=== PATIENT | female | born 1955 | race Caucasian/White ===

== ENCOUNTER → 2017-10-16 02:17 | Outpatient (CLI) | payer BC, SELFPAY ==
--- NOTE | 2017-10-16 15:28 | DI.REPORT_ITS ---
SYMPTOMS/DIAGNOSIS: CLOSED NONDISPLACED FX OF 5TH METATARSAL BONE, S92.355A, ? OSTEOPOROSIS DEXA SCAN: Routine examination. The lateral spine shows no compression deformities. Evaluation of the lumbar spine shows a total T score of -2.8 and a Z score of - 1.0, consistent with osteoporosis and a high fracture risk. This compares with a total T score of -1.7 from 2012. IMPRESSION: Findings consistent with osteoporosis of the lumbar spine.
== END ==
PROVIDERS: PCP Emergency Medicine; Visit Provider Student in an Organized Health Care Education/Training Program
DX: S92.355A Nondisplaced fracture of fifth metatarsal bone, left foot, initial encounter for closed fracture (principal); M81.0 Age-related osteoporosis without current pathological fracture
CPT/HCPCS: 77080

== ENCOUNTER 2017-10-25 09:22 | Outpatient (CLI) | payer BC, SELFPAY ==
[2017-10-25 10:38] LABS: Cholesterol 316 mg/dL (50-200); HDL Cholesterol 67 mg/dL (40-60); LDL CHOLESTEROL 224 mg/dL (<100); Triglyceride 106 mg/dL (30-150)
== END 2017-10-25 09:42 ==
PROVIDERS: PCP Emergency Medicine; Visit Provider Emergency Medicine
DX: E78.5 Hyperlipidemia, unspecified (principal)
CPT/HCPCS: 36415; 80061; 83721

== ENCOUNTER 2017-12-19 11:43 | Outpatient (CLI) | payer BC, SELFPAY ==
[2017-12-19 13:16] LABS: TSH 2.57 uIU/mL (0.358-3.74)
== END 2017-12-19 12:03 ==
PROVIDERS: PCP Emergency Medicine; Visit Provider Emergency Medicine
DX: E03.9 Hypothyroidism, unspecified (principal); E78.5 Hyperlipidemia, unspecified
CPT/HCPCS: 36415; 84443

== ENCOUNTER 2018-07-01 17:35 | Emergency (ER) | payer MEDICARE, BC, SELFPAY ==
[2018-07-01 17:46] VITALS: BP 123/61; PULSE 68; RESP 16; TEMP 36.3; O2SAT 96
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
[2018-07-01] MEDS: Acetaminophen 325 MG TAB 650 MG PO (19:49)
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
[2018-07-02] MEDS: Ibuprofen 600 MG TAB PO
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
== END 2018-07-02 00:10 | disposition home or self-care (01) ==
PROVIDERS: Emergency Provider Student in an Organized Health Care Education/Training Program; PCP Emergency Medicine
DX: S82.842A Displaced bimalleolar fracture of left lower leg, initial encounter for closed fracture (principal); S62.241A Displaced fracture of shaft of first metacarpal bone, right hand, initial encounter for closed fracture; V18.0XXA Pedal cycle driver injured in noncollision transport accident in nontraffic accident, initial encounter; Y93.55 Activity, bike riding
CPT/HCPCS: 27786; 29125; 99283; 73110; 73610; 99282; L4361

== ENCOUNTER 2018-07-05 08:22 | Outpatient (CLI) | payer MEDICARE, BC, SELFPAY ==
--- NOTE | 2018-07-05 08:33 | DI.RAD_ITS ---
SYMPTOMS/DIAGNOSIS: F/U RT ORTEGA FX RIGHT THUMB: The exam is limited by overlying cast material. There are no prior comparison exams. There is a fracture at the base of the first metacarpal which shows only mild displacement.
== END 2018-07-05 08:42 ==
PROVIDERS: PCP Emergency Medicine; Referring Provider Emergency Medicine; Visit Provider Student in an Organized Health Care Education/Training Program
DX: S62.211A Bennett's fracture, right hand, initial encounter for closed fracture (principal); V18.0XXA Pedal cycle driver injured in noncollision transport accident in nontraffic accident, initial encounter; Y93.55 Activity, bike riding; S82.65XA Nondisplaced fracture of lateral malleolus of left fibula, initial encounter for closed fracture
CPT/HCPCS: 99214; 73140; 73630

== ENCOUNTER 2018-07-05 11:39 | Outpatient (CLI) | payer MEDICARE, BC, SELFPAY ==
--- NOTE | 2018-07-05 09:05 | DI.RAD_ITS ---
SYMPTOMS/DIAGNOSIS: FALL WITH LT FOREFOOT PAIN LEFT FOOT: Comparison is made with [id number]. There is an old healed fracture at the base of the fifth metatarsal. There are degenerative changes of the first MTP joint, unchanged. The bones appear osteopenic. A tiny heel spur is seen. IMPRESSION: No acute abnormality.
== END 2018-07-05 11:59 ==
PROVIDERS: PCP Emergency Medicine; Visit Provider Student in an Organized Health Care Education/Training Program
DX: M79.672 Pain in left foot (principal); M19.072 Primary osteoarthritis, left ankle and foot; M85.88 Other specified disorders of bone density and structure, other site; M77.32 Calcaneal spur, left foot; S62.211D Bennett's fracture, right hand, subsequent encounter for fracture with routine healing
CPT/HCPCS: 73630

== ENCOUNTER 2018-07-12 11:30 | Outpatient (CLI) | payer MEDICARE, BC, SELFPAY ==
--- NOTE | 2018-07-12 11:27 | DI.RAD_ITS ---
SYMPTOMS/DIAGNOSIS: F/U RT BENNET FX RIGHT THUMB: Comparison is made with [id number]. A splint is in place which somewhat obscures the bony detail. There has been no change in the alignment of the fracture of the proximal phalanx of the thumb. There has been some increased healing when compared with the previous exams.
== END 2018-07-12 11:50 ==
PROVIDERS: PCP Emergency Medicine; Referring Provider Emergency Medicine; Visit Provider Student in an Organized Health Care Education/Training Program
DX: S62.211D Bennett's fracture, right hand, subsequent encounter for fracture with routine healing (principal); S82.65XD Nondisplaced fracture of lateral malleolus of left fibula, subsequent encounter for closed fracture with routine healing; L03.116 Cellulitis of left lower limb; X58.XXXD Exposure to other specified factors, subsequent encounter
CPT/HCPCS: 99213; Q4010; 73140

== ENCOUNTER 2018-08-02 10:31 | Outpatient (CLI) | payer MEDICARE, BC, SELFPAY ==
--- NOTE | 2018-08-02 10:27 | DI.RAD_ITS ---
SYMPTOM/DIAGNOSIS: RT BENNET FX F/U RIGHT THUMB: Three views. Comparison 07/12/18 There has been no change in alignment of the fracture involving the first metacarpal. Callus formation has developed about the fracture consistent with some interval healing. IMPRESSION: Healing first metacarpal fracture
== END 2018-08-02 10:51 ==
PROVIDERS: PCP Emergency Medicine; Referring Provider Emergency Medicine; Visit Provider Student in an Organized Health Care Education/Training Program
DX: S62.211A Bennett's fracture, right hand, initial encounter for closed fracture (principal); S82.65XA Nondisplaced fracture of lateral malleolus of left fibula, initial encounter for closed fracture; X58.XXXA Exposure to other specified factors, initial encounter; L03.116 Cellulitis of left lower limb
CPT/HCPCS: 99213; 73140; L3908

== ENCOUNTER 2018-08-26 13:48 | Outpatient (CLI) | payer MEDICARE, BC, SELFPAY ==
--- NOTE | 2018-08-26 10:59 | DI.RAD_ITS ---
SYMPTOM/DIAGNOSIS; F/U LEFT LATERAL MALLEOLUS FRACTURE LEFT ANKLE: 08/26 Two views were obtained. The previously described nondisplaced fracture of the lateral malleolus is again noted which appears to be healing with no change in alignment in comparison with examination of 07/01/2018
== END 2018-08-26 14:08 ==
PROVIDERS: PCP Emergency Medicine; Referring Provider Emergency Medicine; Visit Provider Student in an Organized Health Care Education/Training Program
DX: S82.65XA Nondisplaced fracture of lateral malleolus of left fibula, initial encounter for closed fracture; G62.9 Polyneuropathy, unspecified; X58.XXXA Exposure to other specified factors, initial encounter
CPT/HCPCS: 99213; 73600

== ENCOUNTER 2018-10-02 08:20 | Outpatient (CLI) | payer MEDICARE, BC, SELFPAY ==
[2018-10-02 09:35] LABS: Calculated LDL 89 mg/dL; Cholesterol 173 mg/dL (50-200); HDL Cholesterol 71 mg/dL (40-60); Triglyceride 66 mg/dL (30-150)
== END 2018-10-02 08:40 ==
PROVIDERS: PCP Emergency Medicine; Visit Provider Internal Medicine
DX: E78.01 Familial hypercholesterolemia (principal)
CPT/HCPCS: 36415; 80061; 83721

== ENCOUNTER 2019-02-07 07:00 | Outpatient (CLI) | payer MEDICARE, BC, SELFPAY | END 2019-02-07 07:20 | PROVIDERS: PCP Emergency Medicine; Visit Provider Emergency Medicine | DX: E03.9 Hypothyroidism, unspecified (principal) | CPT/HCPCS: 36415; 84443 ==

== ENCOUNTER → 2019-03-11 15:00 | Outpatient (BNVA) | payer MEDICARE, BC, SELFPAY | PROVIDERS: PCP Emergency Medicine; Referring Provider Emergency Medicine; Visit Provider Nurse Practitioner Gerontology | DX: N39.41 Urge incontinence (principal) | CPT/HCPCS: 99204; 99215 ==

== ENCOUNTER 2019-03-20 01:17 | Outpatient (CLI) | payer MEDICARE, BC, SELFPAY ==
--- NOTE | 2019-03-20 10:02 | DI.MAMMO_ITS ---
EXAM: MAMMO SCREENING CLINICAL HISTORY: Screening.z12.39 TECHNIQUE: Mammograms were interpreted according to the usual protocol including computer analysis w [employer] CAD system, tomosynthesis and C-view imaging. FINDINGS: The breasts are heterogeneously dense. No dominant mass or clumped microcalcification is identified in either breast. Current examination is compared with previous examinations including May 2017 an d there has been no gross interval change in appearance in comparison with previous studies. IMPRESSION: No specific evidence of malignancy at this time. Routine screening examinations are suggested at year ly intervals due to the family history of breast. Category 1. Breast density, category C. BI-RADS Cat 1 - Negative Breast Density - Category C - Heterogeneously dense.
== END 2019-03-20 01:37 ==
PROVIDERS: PCP Emergency Medicine; Visit Provider Obstetrics & Gynecology Gynecology
DX: Z12.31 Encounter for screening mammogram for malignant neoplasm of breast (principal); Z80.3 Family history of malignant neoplasm of breast
CPT/HCPCS: 77063; 77067

== ENCOUNTER 2019-07-16 09:40 | Outpatient (CLI) | payer MEDICARE, BC, SELFPAY ==
[2019-07-17 16:51] LABS: COVID-19 RT-PCR UVMMC Result Negative (Negative)
== END 2019-07-16 10:00 ==
PROVIDERS: PCP Emergency Medicine; Visit Provider Emergency Medicine
DX: R50.9 Fever, unspecified (principal)
CPT/HCPCS: U0003

== ENCOUNTER 2019-08-07 11:00 | Outpatient (CLI) | payer MEDICARE, BC, SELFPAY ==
--- NOTE | 2019-08-07 11:26 | DI.RAD_ITS ---
EXAM: XR FOOT RT COMPLETE CLINICAL HISTORY: post fall - contusion edema,m79.671, pain. TECHNIQUE: 2D digital imaging was performed. COMPARISON: No exams were available for comparison FINDINGS: BONES: There is mild deformity at the proximal third metatarsal which could represent an acute or old fracture. No bony destructive lesion is seen. JOINTS: No dislocation present. SOFT TISSUE: Swelling over the dorsum of the metatarsal region. IMPRESSION: Acute vs old fracture of the proximal third metatarsal. DATA REPOSITORY: RADIATION DOSE DELIVERED:
== END 2019-08-07 11:20 ==
PROVIDERS: PCP Emergency Medicine
DX: M79.672 Pain in left foot (principal); R60.0 Localized edema; M20.5X2 Other deformities of toe(s) (acquired), left foot
CPT/HCPCS: 73630

== ENCOUNTER 2020-03-22 03:00 | Outpatient (CLI) | payer MEDICARE, BC, SELFPAY ==
--- NOTE | 2020-03-22 14:04 | DI.MAMMO_ITS ---
EXAM: MG MAMMO SCREENING CLINICAL HISTORY: screening,Z12.39 TECHNIQUE: Bilateral full field digital CC and MLO mammographic images were obtained with 3D tomosyn thesis and utilizing computer aided detection (CAD). COMPARISON: Available for comparison. FINDINGS: Masses/Architectural Distortion: None seen. There is a biopsy clip again seen in the left breast. Microcalcifications: No suspicious pleomorphic-type are seen. Skin Thickening/Nipple Retraction: None. IMPRESSION: 1. No significant interval change with no specific features of malignancy noted. 2. Unless there is more urgent need, screening mammography is recommended, as per [employer] guidelines. BI-RADS Category 1 - Negative Breast Density - Category C - Heterogeneously dense Breast density category C or D implies that the patient has dense breast tissue. Dense breast tissue is very common and is not abnormal but dense breast tissue can make it harder to find cancer on a ma mmogram. Also, dense breast tissue may increase their breast cancer risk. This information about the result of the mammogram report was provided to the patient to raise their awareness. Use this report when you speak with the patient about their risks for breast cancer, which includes their family hist ory. At that time, you may recommend for more screening tests (Ultrasound or MRI) as they might be us eful based on their risk. A negative radiographic report should not delay biopsy if a dominant or clinically suspicious mass is present. Up to ten percent of cancers are not identified on mammography. A negative report may reinforce clinical impression. Adenosis and dense breasts may obscure an underlying neoplasm. False positive reports average 6 to 10%. Patient will receive a letter notifying them of these results.
== END 2020-03-22 03:20 ==
PROVIDERS: PCP Emergency Medicine; Visit Provider Obstetrics & Gynecology Gynecology
DX: Z12.31 Encounter for screening mammogram for malignant neoplasm of breast (principal)
CPT/HCPCS: 77063; 77067

== ENCOUNTER → 2023-11-28 13:48 | Outpatient (BNVA) | payer MEDICARE, BC, SELFPAY | PROVIDERS: PCP Nurse Practitioner Family; Visit Provider Nurse Practitioner Gerontology | DX: N39.3 Stress incontinence (female) (male) | CPT/HCPCS: 51798; 81003; 99205 ==

== ENCOUNTER → 2024-01-24 08:12 | Outpatient (BNVA) | payer MEDICARE, BC, SELFPAY | PROVIDERS: PCP Nurse Practitioner Family; Referring Provider Nurse Practitioner Family; Visit Provider Nurse Practitioner Gerontology | DX: N39.3 Stress incontinence (female) (male) (principal) | CPT/HCPCS: 99441 ==

== ENCOUNTER → 2024-04-02 13:15 | Outpatient (BNVA) | payer MEDICARE, BC, SELFPAY | PROVIDERS: PCP Nurse Practitioner Family; Referring Provider Nurse Practitioner Family; Visit Provider Nurse Practitioner Gerontology | DX: N39.3 Stress incontinence (female) (male) (principal) | CPT/HCPCS: 51798; 99213 ==

== ENCOUNTER → 2024-10-01 15:25 | Outpatient (BNVA) | payer MEDICARE, BC, SELFPAY | PROVIDERS: Visit Provider Nurse Practitioner Gerontology | DX: N39.3 Stress incontinence (female) (male) (principal); R39.9 Unspecified symptoms and signs involving the genitourinary system | CPT/HCPCS: 99213; 51798 ==

== ENCOUNTER 2024-12-18 10:22 | Emergency (ER) | payer MEDICARE, BC, SELFPAY ==
[2024-12-18] VITALS (18 sets, daily range): BP systolic 123–134; BP diastolic 50–79; PULSE 56–88; RESP 14–23; TEMP 36.5; O2SAT 94–98
--- NOTE | 2024-12-18 10:15 | RT.EKG_ITS ---
APPROVED REPORT Exam: Resting ECG Reason for Exam: dizziness Patient Location: E HR:61 bpm ECG Measurements Heart Rate 61 AXIS PA 188 P 69 QRSd 86 QRS 74 QT 389 T 72 QTc 391 Conclusion Sinus rhythm...normal P axis, V-rate 60- 99
--- NOTE | 2024-12-18 10:43 | ED.GENADUL_ITS ---
Discharge Plan Disposition Patient Disposition: Home Condition: Good Discharge Details Clinical Impression: Vertigo Primary Care Provider: Unknown,Unknown ED Provider: Marilyn Michael Home Meds and New Rx's Prescriptions: New meclizine 25 mg tablet 25 mg PO TID PRN (Reason: motion sickness) Qty: 20 0RF Continued ezetimibe 10 mg tablet 10 mg PO DAILY alprazolam [Xanax] 0.5 mg tablet 0.5 mg PO DIRECTED Qty: 20 0RF Rx Instructions: TAKE ONE HOUR PRIOR TO PLANE TRAVEL; THEN Q4 HOURS NEEDED. clobetasol 0.05 % ointment 1 applic topical DAILY Qty: 45 2RF Rx Instructions: apply tiny amount to vulva daily. multivitamin 1 EACH tablet 1 tab PO DAILY glucosam-chond cy-cwzfqk-kh ac 1 EACH capsule 1 cap PO DAILY levothyroxine [Synthroid] 75 mcg tablet 75 mcg PO DAILY Qty: 90 3RF estradiol 0.01 % (0.1 mg/gram) cream 1 g vaginal .bi weekly Qty: 42.5 0RF mirabegron [Myrbetriq] 50 mg tablet extended release 24 hr 50 mg PO DAILY Qty: 90 3RF Repatha SureClick 140 mg/mL Pen Injector 140 mg SUBCUT Q2W Discharge Instructions Instructions: Meclizine, Vestibular Exercises, Vertigo ED Additional Instructions: As we discussed, the vertigo you are experiencing appears to be peripheral meaning it is originating in the inner ear. This is most commonly caused benign paroxysmal peripheral vertigo. This may come on with certain movements. It can also be worsened when you are dehydrated or if you are ill and you have a virus. Please continue to encourage hydration. Please continue to take care when moving as vertigo can put you at increased risk of fall. You may use the meclizine as prescribed to help with any recurrence of vertigo episodes. You may also try something like the Hugo maneuver, information on this attached, to help to remove the small stone, AKA otolith, from where it is cotton stuck to allow for better movement in your ear and prevent vertigo. If you develop any headache, visual change, sensory change, confusion, uncontrolled vertigo or other new/worsening symptom please seek care urgently once again. Please follow-up with primary care in 1 week for reevaluation. Discharge Data Discharge Date/Time-TO BE ENTERED AT DEPARTURE: 12/18/24 13:35 HPI General Mode of arrival: EMS . Date/Time Provider Initiated Documentation: 12/18/24 10:43 . Limitations to Documentation: no limitations . Information obtained by: patient, family (), EMS and RN notes reviewed . History of Present Illness 69 year old F presents to the emergency department with the chief complaint of vertigo, described as severe, and it has been intermittent. Immobilization improves symptom(s), Movement worsens symptoms . Patient notes nausea/vomiting. Patient did receive the following treatments prior to arrival, other (versed nd zheng) Related Data Home Medications Medication Instructions Recorded Confirmed uqxorkeekf-dvbblzrqkg-tfnracwj-hyalur 1 cap PO DAILY 0 05/17/12 05/31/23 ac 375 mg-300 mg-175 mg-2 mg cap multivitamin 1 tab PO DAILY 05/17/1205/20 evolocumab 140 mg/mL subcutaneous 140 mg subcut Q2W 05/31/23 pen injector (Loida Clinton) alprazolam 0.5 mg tablet (Xanax) 0.5 mg PO DIRECTED #20 tabs 02/07/19 05/31/23 ezetimibe 10 mg tablet 10 mg PO DAILY 02/07/1905/20 clobetasol 0.05 % topical ointment 1 applic topical DA GUILHERME #45 grams 03/16/20 05/31/23 levothyroxine 75 mcg tablet 75 mcg PO DAILY #90 tab-ca ps 08/02/20 05/31/23 (Synthroid) estradiol 0.01% (0.1 mg/gram) 1 g vaginal .bi weekly # 42.5 grams 04/21/24 vaginal cream mirabegron 50 mg tablet,extended 50 mg PO DAILY #90 ta bs 06/10/24 release 24 hr (Myrbetriq) meclizine 25 mg tablet 25 mg PO TID PRN motion sick ness 12/18/24 #20 tabs Previous Rx's Medication Instructions Recorded alprazolam 0.5 mg tablet (Xanax) 0.5 mg PO DIRECTED #20 tabs 02/07/19 clobetasol 0.05 % topical ointment 1 applic topical DA GUILHERME #45 grams 03/16/20 levothyroxine 75 mcg tablet 75 mcg PO DAILY #90 tab-ca ps 08/02/20 (Synthroid) estradiol 0.01% (0.1 mg/gram) 1 g vaginal .bi weekly # 42.5 grams 04/21/24 vaginal cream mirabegron 50 mg tablet,extended 50 mg PO DAILY #90 ta bs 06/10/24 release 24 hr (Myrbetriq) meclizine 25 mg tablet 25 mg PO TID PRN motion sick ness 12/18/24 #20 tabs Allergies Allergy/AdvReac Type Severity Reaction Status Date / Time sulfamethoxazole Allergy Mild ITCHING Verified 12/18/24 10:30 trimethoprim Allergy Mild ITCHING Verified 12/18/24 10:30 wool AdvReac Skin Rash Verified 12/18/24 10:30 General Stated Complaint: Dizzy/Sync MEL: 3 Review of Systems Constitutional Constitutional: Reports as per HPI, Denies chills, Denies fever(s), Denies frequent falls and Denies weakness Eyes Eyes: Reports as per HPI, Denies blurry vision and Denies change in vision ENT Ears, Nose, Mouth, and Throat: Denies neck pain Cardiovascular Cardiovascular: Reports as per HPI, Denies chest pain, Denies dyspnea and Denies dyspnea on exertion Respiratory Respiratory: Reports as per HPI, Denies chest congestion, Denies cough, Denies dyspnea and Denies dyspnea on exertion Gastrointestinal Gastrointestinal: Reports as per HPI, Denies abdominal pain, Denies change in bowel habits and Denies vomiting Musculoskeletal Musculoskeletal: Reports as per HPI, Denies back pain, Denies neck pain and Denies numbness Integumentary/Breasts Skin/Breast: Reports as per HPI and Denies rash Neurologic Neurologic: Reports as per HPI, Denies abnormal speech, Denies behavioral changes, Denies confusion, Denies frequent falls, Denies localized weakness, Denies numbness, Denies sensory deficit and Denies weakness Psychiatric Psychiatric: Denies behavioral changes and Denies confusion Exam Const General: cooperative, healthy appearing, comfortable, no acute distress, well developed, well groomed and anxious Nutritional Appearance: average body habitus and well nourished Orientation: alert, awake and oriented x3 HENMT Head: normal to inspection, no palpable skull fracture, normocephalic and atraumatic Ears: hearing grossly normal bilaterally and external ears normal General nose exam: external nose normal Mouth: oral mucosae normal and moist mucous membranes Throat: posterior oropharynx normal Eyes General: appearance normal, both eyes and all related structures Alignment and Position: alignment normal Periorbital: periorbital findings normal Eyelids: eyelids normal Sclera: sclerae normal Cornea: corneas normal Pupils: PERRL EOM: EOM intact bilaterally and nystagmus Neck Neck: normal visual inspection, full ROM and no lymphadenopathy Resp Effort & Inspection: normal respiratory effort, able to speak in complete sentences and no respiratory distress Auscultation: clear to auscultation bilaterally, no rales, no rhonchi and no wheezes Cardio Rate: regular rate Rhythm: regular rhythm Heart Sounds: S1 normal and S2 normal Skin General skin exam: no rashes or lesions noted Neuro General: patient alert, patient awake and patient oriented x3 Cranial Nerves: CN's II-XI intact bilaterally and nystagmus horizontal fast component to the left Cognition: normal cognition Speech: speech normal Gait: normal gait Motor: muscle tone normal throughout, strength 5/5 throughout, no pronator drift, no movement abnormalities noted and no fasciculations Sensory Exam: no sensory deficits noted Coordination: ppqqww-[id number] test normal Extrem General: capillary refill normal, no pedal edema and no calf tenderness Course Vital Signs Vital signs: Vital Signs Temperature 36.5 C 12/18/24 10:22 Pulse 64 12/18/24 10:22 Respiratory Rate 20 12/18/24 10:22 Blood Pressure 123/55 L 12/18/24 10:22 Pulse Oximetry 97 12/18/24 10:22 Temperature 36.5 C 12/18/24 10:22 Pulse 64 12/18/24 10:22 Respiratory Rate 20 12/18/24 10:22 Blood Pressure 123/55 L 12/18/24 10:22 Blood Pressure Position Supine 12/18/24 10:22 Pulse Oximetry 97 12/18/24 10:22 Oxygen Delivery Method Room Air 12/18/24 10:22 Oxygen Flow Rate 0 12/18/24 10:22 Pain Level 0 12/18/24 10:22 Medical Decision Making Patient is a pleasant 69-year-old female, accompanied by her , presented with chief complaint of vertigo that came on when she was x-raying the gym. She never had episodes like this historically. She reports that she was doing sit ups when she suddenly became vertiginous and the room began violently spinning causing her to become very nauseated. Has not actually had any episodes of emesis. Was given Zofran by EMS and brought here for further evaluation. She denies any headache, vision changes, sensory or motor deficits. Patient does haveHistory of CMT which caused her to have difficulty with her lower extremities as well as some baseline difficulty with balance. However, she typically uses braces and has been able to find ways to counteract this and has been stable with this for years. Patient has no symptoms when at rest. Had been feeling well prior to this. No recent illness. No known sick contacts. No head trauma. Symptoms have been reproducible with movement but otherwise she reports that she is feeling at her baseline. On exam, patient appears nontoxic. She does appear anxious. She is asymptomatic for the most part but does have exacerbations when she rolls to her left. Patient did have several short episodes of the vertigo that are so short is actually hard to evaluate for nystagmus. However, we were able to get her in an upright position and she was able to complete a neurologic exam which she did quite well with. No focal deficits. Patient's episodes are profoundly short only lasting a few seconds. However, when she was having 1 such episode I was able to see a left beating horizontal nystagmus. She does not remain vertiginous long enough to complete the full hints exam. However, given how easily provoked this is with very specific movements and how she consistently is beating horizontally to the left, her exam and history is most consistent with a benign paroxysmal peripheral vertigo. I do not see indication to suggest CVA at this time and feel that treating with meclizine and continue to monitor is appropriate at this point. The patient does not have significant improvement, we will try more provocative movements to try and have a prolonged episode of vertigo such as Josie-Hallpike maneuver but given how difficult the patient has with balance and the degree of nausea she experiences during this brief episodes, will hold off at this time. Patient was given meclizine and symptoms have significantly improved. She is able to ambulate unassisted after this medication. As noted above, we were able to replicate the vertigo and note horizontal nystagmus that was left beating. This has been primarily concern for a peripheral cause. She has no other strokelike symptoms. She has not had any symptoms to suggest growing mass. I do not see need at this time for further evaluation for central cause of her vertigo. I did have a lengthy discussion around this with the patient and her significant other and they agree with this plan. She reports that she feels like she is at her baseline and would prefer to hold off on any further evaluation would prefer to go home and continue to treat the vertigo as we have done thus far. I encourage close follow-up with primary care. We did discuss trying the Hugo maneuver but she would prefer to hold off and do this at home. Information on how to do this at home will be given to the patient. Strict return precautions were discussed. All of her questions and concerns were addressed and she is in agreement this plan. Dictation completed using [employer] dictation software. Please excuse any errors or tire building supervisor anomalies that may remain. 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 No response to E2. Rx for topical Clobetasol Onychomycosis (Acute) Right foot pain (Acute) Retinal disease, right (Acute) Urinary incontinence (Acute) dribbles when getting up from sitting. urgency but no frequency. Nocturia x2 if drinking H2O at night Depressive disorder (Chronic 04/23/12) Fibrocystic disease of breast (Chronic) Hemorrhoids (Chronic) Hyperlipidemia (Chronic) Hypothyroidism (Chronic 08/06/15) Mitral valve regurgitation (Chronic) Osteopenia (Chronic) Peripheral neuropathy (Chronic 06/05/14) Hereditary Charcot Jillian Tooth Dx Vaginal dryness, menopausal (Chronic 10/15/15) Uses Estring with good results Raynaud's disease (Acute) feet Carpal tunnel syndrome (Acute) Medical History (Updated 12/18/24 @ 12:56 by MIKE Arevalo) Fracture, ankle Fracture, Fernández's, right hand, closed (07/01/18) PTSD (post-traumatic stress disorder) (08/06/15) Other intraarticular fracture of lower end of left radius, subsequent encounter for closed fracture with routine healing (09/20/16) Low back pain Nondisplaced fracture of fifth metatarsal bone, left foot, initial encounter for closed fracture (08/03/17) Cardiac murmur Surgical History Colonoscopy - MAC (11/24/15) 2006 Family History Sister Breast cancer Mother Essential hypertension Heart disease Father , AGE 74 Diabetes Heart disease Hyperlipidemia Heart attack X 2 Brother , age 64 No problems noted. Maternal Grandfather , AGE 60 Heart disease Alcohol abuse Paternal Grandfather , AGE 60 Lung cancer Maternal Grandmother , AGE 100 Heart disease Paternal Grandmother , AGE 97 No problems noted. Sister No problems noted. Social History Smoking/Tobacco Use Status: Never Smoking risk assessment performed?: Yes Alcohol Intake: current Alcohol Intake frequency: holidays/special occasions only Alcohol type: hard liquor Drug use: Never Substance use type: does not use Caregiver/Support person: No Household members: spouse Housing: house Number of Children: 0 Communication Needs: None Education Level: college Do you need help understanding health information?: Never current occupation: [employer] Pets and animals: Yes Pets and animals: dog(s) Sexually active: No Do you think of yourself as: straight/heterosexual Current gender identity: female What is your relationship status?: How often do you talk on the phone with friends or family?: three or more times per week How often do you get together with friends or relatives?: twice per week How often do you attend catholic or sabianism services?: decline to answer Do you belong to any clubs or organized social groups?: yes Panel score (0-1 are the most socially isolated patients): 3 What type of physical activity do you participate in: walking, bicycling, other Details: barre class, personal care attendant, kayaking, hiking, snowshoeing and yoga Duration: 45-60 minutes/day Frequency: 3-4 times per week Conchis/Cheondoism: None Special conchis needs: No Seatbelt use: always Helmet use: Yes Helmet use: always Drive intox or ride w/intox local hazmat driver: No Do you feel safe in your relationship?: Yes Female Reproductive History Menstrual Menopause type: natural History History 1 Para 0 Hx # Term Pregnancies 0 Multiple births Hx # Pregnancies Ectopic pregnancies 1 AB induced Hx Number of Living Children 0 AB spontaneous 0
[2024-12-18] MEDS: Meclizine 25 MG TAB PO (11:20)
[2024-12-18] MEDS: Meclizine 25 MG TAB 75 MG PO (13:17)
== END 2024-12-18 13:35 | disposition home or self-care (01) ==
PROVIDERS: Emergency Provider Physician Assistant
DX: R42 Dizziness and giddiness (principal)
CPT/HCPCS: 99283 ×2; 93005; 93010